=== PATIENT | female | born 1960 | race Caucasian/White ===

== ENCOUNTER 2016-10-09 10:23 | Emergency (ER) | payer OTHER ==
[2016-10-09 10:27] VITALS: RESP 16; TEMP 99
--- NOTE | 2016-10-09 11:15 | EDPHY ---
H & P Stated Complaint: RLQ pain & R flank pain 1 day HPI/ROS: CHIEF COMPLAINT: Abdominal pain HISTORY OF PRESENT ILLNESS: This is a healthy 56-year-old female who developed right lower quadrant abdominal pain yesterday. She rates it as a 7-8 in terms of intensity. This pain radiates into her low back. It feels as if she has been punched in the back. She had some chills last night but no fever. She has nausea today but has not had vomiting. She had a normal bowel movement at 3 :00 a.m. and has not had diarrhea. She denies hematuria or dysuria. She has had no abdominal surgeries. She denies abdominal trauma. She has not taken anything for pain. She has not found position of comfort. Last night she was moving about in the bed, trying to find a position that would minimize her pain. REVIEW OF SYSTEMS: A ten point review of systems was performed and is negative with the exception of the items mentioned in the HPI. Source: Patient Exam Limitations: No limitations - Personal History Current Tetanus/Diphtheria Vaccine: Yes Current Tetanus Diphtheria and Acellular Pertussis (TDAP): Yes - Medical/Surgical History Hx Asthma: No Hx Chronic Respiratory Disease: No Hx Diabetes: No Hx Cardiac Disease: No Hx Renal Disease: No Hx Cirrhosis: No Hx Alcoholism: No Hx HIV/AIDS: No Hx Splenectomy or Spleen Trauma: No Other PMH: Tonsillectomy - Social History Smoking Status: Never smoked Alcohol Use: Occasionally Drug Use: None Additional Social History: She has 3 children. She works in IT. - Physical Exam Exam: General Appearance: Alert. Vital signs reviewed. Eyes: Pupils equal and round, no conjunctival injection, no discharge. Anicteric. ENT, Mouth: Mucous membranes are moist, no oropharyngeal erythema or edema. Neck: No lymphadenopathy, supple. Respiratory: Lungs are clear to auscultation; no wheezes, rales, or rhonchi. Cardiovascular: Regular rate and rhythm; no murmur, rub, or gallop. Gastrointestinal: Abdomen is soft with tenderness the right lower quadrant, no guarding no masses or organomegaly, bowel sounds normal. Skin: Warm and dry, no rashes on exposed skin, normal color. No signs of shingles. Back: Nontender to palpation over the thoracolumbar spine. No CVAT. Extremities: No lower extremity edema, no calf tenderness or swelling. Neurological: Alert and oriented. Moving all four extremities easily and equally. Psychiatric: Normal affect. Constitutional: Initial Vital Signs Temperature (C) 37.2 C 10/09/16 10:25 Heart Rate 88 10/09/16 10:25 Respiratory Rate 16 10/09/16 10:25 Blood Pressure 118/84 H 10/09/16 10:25 O2 Sat (%) 94 10/09/16 10:25 O2 Delivery Mode Room Air Allergies/Adverse Reactions: No Known Allergies Allergy (Unverified 10/09/16 10:27) Home Medications: Medication Instructions Recorded Acetaminophen/Codeine 300/30Mg 1 each PO Q6 #10 tab 10/09/16 [Tylenol #3 (*)] Cephalexin [Keflex] 500 mg PO BID #10 cap 10/09/16 Medical Decision Making ED Course/Re-evaluation: History is suggestive of a kidney stone. Appendicitis is another diagnostic consideration. She is not febrile. On exam she does have right lower quadrant tenderness without guarding or rebound. CBC, chemistries, LFTs, lipase reviewed. No abnormalities aside from a slight increase in her white blood cell count. Urinalysis is suggestive of urinary tract infection with mild bacteriuria and leukocyte esterase. She was re-examined at 1:30 p.m.. She continues with right lower quadrant tenderness. She has had good pain relief with Dilaudid. I am concerned about her tenderness and not 100% convinced that her symptoms are related to a mild urinary tract infection. CT scan is being ordered to assess for kidney stone. CT scan reported to me by Dr. Alvarez. No kidney stone is seen. Her appendix is visualized and is normal. He does note a 13 mm calcified splenic artery aneurysm and follow-up is recommended in 1 year. I have reported this to the patient and will included on her discharge instructions. She was re-evaluated at 2:15 p.m.. She has received Dilaudid for pain and is resting comfortably. She continues with some mild lower abdominal pain, primarily in the right lower quadrant. No guarding or peritoneal signs. She does not have CVA tenderness. She is not febrile. Although the level of her pain is somewhat atypical for urinary tract infection there is nothing on exam or CT to support a diagnosis of pyelonephritis. She is being started on Keflex for. We reviewed the danger signs that should prompt her to be re-evaluated. She has requested a prescription for small quantity of Tylenol No. 4, in case she has a resurgence of pain. She has used this medication successfully in the past. Differential Diagnosis: I considered a differential diagnosis that includes but is not limited to appendicitis, pyelonephritis, urinary tract infection, ureterolithiasis, bowel obstruction, hernia, and ovarian pathology. - Data Points Laboratory Results: Laboratory Results 10/09/16 11:45 10/09/16 12:06 10/09/16 10/09/16 10/09/16 12:06 11:45 11:35 WBC 10.32 H 10^3/uL (3.80-9.50) RBC 5.02 10^6/uL (4.18-5.33) Hgb 15.6 g/dL (12.6-16.3) Hct 44.3 % (38.0-47.0) MCV 88.2 fL (81.5-99.8) MCH 31.1 pg (27.9-34.1) MCHC 35.2 g/dL (32.4-36.7) RDW 12.9 % (11.5-15.2) Plt Count 168 10^3/uL (150-400) MPV 11.1 fL (8.7-11.7) Neut % (Auto) 65.8 % (39.3-74.2) Lymph % (Auto) 20.5 % (15.0-45.0) [place] % (Auto) 8.5 % (4.5-13.0) Eos % (Auto) 3.7 % (0.6-7.6) Baso % (Auto) 0.8 % (0.3-1.7) Nucleat RBC Rel Count 0.0 % (0.0-0.2) Absolute Neuts (auto) 6.79 H 10^3/uL (1.70-6.50) Absolute Lymphs (auto) 2.12 10^3/uL (1.00-3.00) Absolute Monos (auto) 0.88 H 10^3/uL (0.30-0.80) Absolute Eos (auto) 0.38 10^3/uL (0.03-0.40) Absolute Basos (auto) 0.08 10^3/uL (0.02-0.10) Absolute Nucleated RBC 0.00 10^3/uL (0-0.01) Immature Gran % 0.7 % (0.0-1.1) Immature Gran # 0.07 10^3/uL (0.00-0.10) Sodium 141 mEq/L (134-144) Potassium 4.2 mEq/L (3.5-5.2) Chloride 109 mEq/L (97-110) Carbon Dioxide 22 mEq/l (22-31) Anion Gap 10 mEq/L (8-16) BUN 14 mg/dL (7-23) Creatinine 0.7 mg/dL (0.6-1.0) Estimated GFR > 60 Glucose 85 mg/dL (70-100) Calcium 8.4 L mg/dL (8.5-10.4) Total Bilirubin 0.7 mg/dL (0.1-1.4) Conjugated Bilirubin 0.2 mg/dL (0.0-0.5) Unconjugated Bilirubin 0.5 mg/dL (0.0-1.1) AST 38 IU/L (14-46) ALT 35 IU/L (9-52) Alkaline Phosphatase 89 IU/L (38-126) Total Protein 6.8 g/dL (6.3-8.2) Albumin 3.9 g/dL (3.5-5.0) Lipase 132.0 IU/L (23-300) Urine Color YELLOW Urine Appearance CLEAR Urine pH 6.0 (5.0-7.5) Ur Specific [place] 1.011 (1.002-1.030) Urine Protein NEGATIVE (NEGATIVE) Urine Ketones NEGATIVE (NEGATIVE) Urine Blood NEGATIVE (NEGATIVE) Urine Nitrate NEGATIVE (NEGATIVE) Urine Bilirubin NEGATIVE (NEGATIVE) Urine Urobilinogen NEGATIVE EU (0.2-1.0) Ur Leukocyte Esterase TRACE H (NEGATIVE) Urine RBC 1-3 /hpf (0-3) Urine WBC 1-3 /hpf (0-3) Ur Epithelial Cells TRACE /lpf (NONE-1+) Urine Bacteria TRACE H /hpf (NONE SEEN) Urine Mucus TRACE /lpf (NONE-1+) Ur Culture Indicated? INDICATED H (NI) Urine Glucose NEGATIVE (NEGATIVE) Medications Given: Discontinued Medications Hydromorphone HCl (Dilaudid) 0.5 mg IVP EDNOW ONE Stop: 10/09/16 11:31 Last Admin: 10/09/16 11:45 Dose: 0.5 mg Hydromorphone HCl (Dilaudid) 0.5 mg IVP EDNOW ONE Stop: 10/09/16 13:53 Last Admin: 10/09/16 14:02 Dose: 0.5 mg Sodium Chloride (Ns) 1,000 mls @ 0 mls/hr IV ONCE ONE PRN Reason: Wide Open Stop: 10/09/16 11:30 Last Admin: 10/09/16 11:45 Dose: 1,000 mls Departure - Departure Disposition: Home, Routine, Self-Care Clinical Impression: Urinary tract infection Qualifiers: Urinary tract infection type: acute cystitis Hematuria presence: without hematuria Qualifier Code: (N30.00) Acute cystitis without hematuria Condition: Good Instructions: Urinary Tract Infection in Women (ED) Additional Instructions: Use the Tylenol No. 3 if needed for pain. Begin the antibiotic, Keflex, as soon as you fill a prescription today. If you develop fever, kidney or flank pain, worsening abdominal pain, vomiting , any new or concerning symptoms--you should be re-evaluated. I am providing you with the office number for a local primary care physician. As we discussed, a CT scan of her abdomen and pelvis shows a splenic artery aneurysm. It currently measures 13 mm and is calcified. It is recommended that you have this followed up with CT scanning in 1 year. Please discuss this with your primary care physician. Referrals: [place],. [Primary Care Provider] - As per Instructions Amanda Manning MD [Medical Doctor] - As per Instructions Prescriptions: Cephalexin [Keflex] 500 mg PO BID #10 cap Acetaminophen/Codeine 300/30Mg [Tylenol #3 (*)] 1 each PO Q6 #10 tab
[2016-10-09] MEDS ORDERED: NS 1,000 ML IV ONE (11:29)
[2016-10-09] MEDS ORDERED: HYDROmorphONE/DILAUDID 1 MG/ML SYR IVP ONE ×2 (11:30→13:52)
[2016-10-09 12:06] LABS: COLOR YELLOW; LEUKOCYTE ESTERASE,URINE TRACE (NEGATIVE); NITRITE,URINE NEGATIVE (NEGATIVE)
[2016-10-09 12:14] LABS: BACTERIA TRACE /hpf (NONE SEEN); MUCUS TRACE /lpf (NONE-1+)
[2016-10-09 12:36] LABS: ALANINE AMINOTRANSFERASE 35 IU/L (9-52); ALBUMIN 3.9 g/dL (3.5-5.0); ALKALINE PHOSPHATASE 89 IU/L (38-126); ANION GAP 10 mEq/L (8-16); ASPARTATE AMINOTRANSFERASE 38 IU/L (14-46); BILIRUBIN,TOTAL 0.7 mg/dL (0.1-1.4); BILIRUBIN-CONJUGATED 0.2 mg/dL (0.0-0.5); BILIRUBIN-UNCONJUGATED 0.5 mg/dL (0.0-1.1); CALCIUM 8.4 mg/dL (8.5-10.4); CARBON DIOXIDE 22 mEq/l (22-31); CHLORIDE 109 mEq/L (97-110); CREATININE 0.7 mg/dL (0.6-1.0); GLOMERULAR FILTRATION RATE > 60; GLUCOSE 85 mg/dL (70-100); POTASSIUM 4.2 mEq/L (3.5-5.2); SODIUM 141 mEq/L (134-144); TOTAL PROTEIN 6.8 g/dL (6.3-8.2)
[2016-10-09 12:39] LABS: % IMMATURE GRANULYOCYTES 0.7 % (0.0-1.1); ABSOLUTE IMMATURE GRANULOCYTES 0.07 10^3/uL (0.00-0.10); ADD DIFF? NO; ADD MORPH? NO; ADD SCAN? YES; ATYPICAL LYMPHOCYTE FLAG 0 (0-99); FRAGMENT RBC FLAG 0 (0-99); HEMATOCRIT 44.3 % (38.0-47.0); HEMOGLOBIN 15.6 g/dL (12.6-16.3); LEFT SHIFT FLG 0 (0-99); LIPEMIA HEMOLYSIS FLAG 90 (0-99); MEAN CELL HEMOGLOBIN 31.1 pg (27.9-34.1); MEAN CELL HEMOGLOBIN CONCENTR. 35.2 g/dL (32.4-36.7); MEAN CELL VOLUME 88.2 fL (81.5-99.8); MEAN PLATELET VOLUME 11.1 fL (8.7-11.7); PLATELET COUNT 168 10^3/uL (150-400); RED BLOOD CELL COUNT 5.02 10^6/uL (4.18-5.33); RED CELL DISTRIBUTION WIDTH 12.9 % (11.5-15.2)
[2016-10-09 12:41] LABS: PLATELET CLUMPS FLAG 280 (0-99)
[2016-10-09 13:00] LABS: SCAN NEGATIVE
--- NOTE | 2016-10-09 14:09 | CT ---
Unenhanced CT Scan of the Abdomen and Pelvis (Renal Stone Protocol) Clinical History: 56-year-old female complaining of right flank pain which began yesterday. Rule out kidney stone. There is no hematuria, although there is mild pyuria. Technique: A multidetector unenhanced helical CT scan was obtained from lung bases inferiorly through the proximal femora, with images reformatted at 2.50 and 1.25 mm increments, and reviewed in a varie ty of window and level settings. Parasagittal and paracoronal reconstructed images are reviewed on [facility] workstation. The DFOV is 47.9 cm. A dose reduction protocol was used. Comparison Study: None. Findings: Unenhanced CT Scan of the Abdomen: There is some linear scarring in the inferior lingula, in the ante romedial left lower lobe, and some minimal subpleural fibrosis adjacent to an osteophyte in the media l right lower lobe. There is no pleural or pericardial effusion. There are no hepatic, pancreatic, sp lenic, adrenal, or left renal calcifications. There is a circumferentially calcified 13 x 13 mm splen ic artery aneurysm. Followup CT imaging in one year is recommended to assure stability. There is a 9 x 1 mm curvilinear calcification seen in the lower pole of the right kidney. There is no hydronephros is or perinephric fluid. There is no ureterolithiasis. The CT appearance of small and large bowel is notable only for mild constipation. The abdominal aorta and IVC are normal in caliber. The osseous st ructures are age-appropriate. Unenhanced CT Scan of the Pelvis: The retrocecal appendix is normal, identified on series 2, images 1 13-124. The urinary bladder is moderately distended. The uterus is midline. There is no adnexal mass. There is a phlebolith in the left hemipelvis. There are mild degenerative changes associated with e SI joints. Impression: 1. Nonobstructive right nephrolithiasis. 2. There is a 13 x 13 mm calcified splenic artery aneurysm. This does not reach size threshold for fu rther intervention; however, CT imaging in one year is recommended to assure stability. 3. Normal CT appearance of the appendix. Results were called to Dr. Ines Pickering. Attention: This CT examination is specifically designed to evaluate patients who are clinically susp ected of having acute obstructive uropathy. This examination does not use radiographic contrast, and as such, provides only a limited evaluation of the abdomen, pelvis, and retroperitoneum. If there i s further clinical suspicion for pathological conditions other than obstructive uropathy, a complete CT evaluation of the abdomen and pelvis utilizing intravenous, oral, and rectal contrast should be co nsidered. A test result has been communicated to a licensed care provider and documented in [employer], 2:02:01 PM , 10/09/2016, [employer] Message ID [id number].
[2016-10-09 14:37] VITALS: BP 148/79; PULSE 70; O2SAT 95
== END 2016-10-09 14:41 | disposition home or self-care (01) ==
DX: N30.00 Acute cystitis without hematuria (principal); B96.89 Other specified bacterial agents as the cause of diseases classified elsewhere
CPT/HCPCS: 96374; J1170